=== PATIENT | female | born 1990 | race Caucasian/White ===

== ENCOUNTER 2023-08-24 01:26 | Inpatient (IN) | payer SELFPAY ==
[2023-08-24] VITALS (17 sets, daily range): BP systolic 90–122; BP diastolic 59–76; PULSE 62–88; RESP 14–16; TEMP 36.4–36.6; O2SAT 94–99; BMI 27.6
[2023-08-24 01:48] LABS: Absolute Lymphocyte Count 2.73 X10^3/uL (0.83-4.51); Absolute Neutrophil Count 6.3 X10^3/uL (2.0-7.7); Basophil# 0.04 X10^3/uL; Basophil% 0.4 % (0-1); Eosinophil# 0.13 X10^3/uL; Eosinophils% 1.3 % (0-5); Hematocrit 38.4 % (37-47); Lymphocyte # 2.73 X10^3/ul (0.83-4.51); Lymphocyte % 27.7 % (19-41); Mean Corp Hgb Conc 33.9 g/dL (32-36); Mean Corpuscular Hgb 30.5 pg (27.0-32.0); Mean Corpuscular Volume 90.1 fL (81-99); Mean Platelet Vol. 10.3 fl (6.2-12.0); Monocyte# 0.55 X10^3/uL; Monocyte% 5.6 % (0-10); NRBC Flagged by Analyzer 0 % (0-5); Neutrophil # 6.33 X10^3/uL (2.7-7.7); Neutrophil % 64.4 % (47-70); Platelet Count 194 K/mm3 (150-450); RBC Distribution Width CV 12.3 % (11.6-14.6); RBC Distribution Width SD 39.8 fl (35.1-43.9); Red Blood Count 4.26 M/mm3 (4.2-5.4); White Blood Count 9.8 K/mm3 (4.4-11.0)
[2023-08-24] MEDS: Oxytocin 15 Units/NS 250ml 15 UNITS/250 ML IV.SOLN 83 UNITS IV (02:05)
[2023-08-24] MEDS: Oxytocin 10 UNITS/ML Vial IM (02:12)
--- NOTE | 2023-08-24 02:13 | HP.PCM.OB_ITS ---
HPI - General General Date of Admission: 08/24/23 Date of Service: 08/24/23 HPI Narrative MARIAN METZ, is a 33 F who presents with ctxs. Maternal Data Information Final RADHA: 08[birth year] Gestational age: 39&3 [facility] Medical History no medical history Home Medications amoxicillin 875 mg-potassium clavulanate 125 mg tablet 1 tab PO BID #20 tabs 12/21/21 [Rx Last Taken Unknown] Allergy/AdvReac Type Severity Reaction Status Date / Time sulfamethoxazole Allergy Severe Hives Verified 05/15/22 09:05 [From Bactrim] trimethoprim [From Bactrim] Allergy Severe Hives Verified 05/15/22 09:05 Vital Signs Vital Signs Vital Signs: 08/24/23 01:45 08/24/23 01:45 08/24/23 01:48 Pulse Rate 75 77 Pulse Ox 97 08/24/23 01:48 08/24/23 01:50 08/24/23 01:50 Pulse Rate 77 Pulse Ox 94 99 Weight Weight: 166 lb Body Mass Index (BMI) 27.6 Labs Labs Labs: Blood Type Pending Antibody Screen Pending Hct 38.4 % (37-47) Hgb 13.0 g/dL (12.0-15.0) Syphilis Total Ab Pending Assessment & Plan (1) with 39 completed weeks gestation: COMMENT: 33yo @ 39&3 PLAN: Plan Patient presented to L&D and then proceeded to have a precipitous . Need to obtain [facility] records as patient initially planned to deliver at [place].
--- NOTE | 2023-08-24 02:19 | EX.PCM.OBRPT ---
Maternal Data Information Final RADHA: 08[birth year]/23 Gestational age: 39&3 Vaginal Delivery Maternal Presentation Maternal Presentation: Active Labor Operative Information Date of Procedure: 08/24/23 Pre-Operative Diagnosis: Labor Post-Operative Diagnosis: Labor Surgery / Procedure Performed: Spontaneous Vaginal Delivery Type of Anesthesia: None Estimated Blood Loss: 200ml Findings Description of Procedure: Patient prepped & draped when ant lip/C/+1. AROM thin mec fluid. Patient then C/C/+1. She pushed well to deliver the head. head gently guided to allow delivery of anterior and posterior shoulders. No excess traction placed on head. Body delivered and 3VC clamped & cut in delayed fashion. Placenta delivered with gentle traction and good uterine tone obtained. Presentation: LOP Amniotic Membrane Rupture Type: Artificial Amniotic Fluid Description: Lightly stained meconium Placental Delivery Description: Expressed Placenta Disposition: [facility] Specimen(s) Removed: Placenta Cord Vessel Description: 3 Vessels Cord Entanglement: Around neck x 1, loose Nuchal Cord Compression: With compression Infant A Gender: Female (1 minute): 7 (5 minute): 8 Delayed Cord Clamping: No Post Vaginal Delivery Medications Given After Delivery: IV Pitocin Episiotomy Description: None Laceration: None Complication Complications: None
[2023-08-24 03:17] LABS: Syphilis Antibodies Non-reactive
--- NOTE | 2023-08-24 21:38 | PCM.DC.SUM ---
Providers Date of Admission: 08/24/23 Primary Care Physician: No Primary Care Phys Reason For Visit: VAGINAL DELIVERY Diagnosis Discharge Diagnosis (1) with 39 completed weeks gestation: Status: Acute Code(s): Z3A.39 - 39 weeks gestation of Medications at Discharge Home Medications acetaminophen 500 mg tablet 1,000 mg (2 x 500 mg) PO Q6H PRN PRN Pain 1-10 Or Fever #0 tabs 08/24/23 ibuprofen 600 mg tablet 600 mg PO Q6H PRN PRN Pain Score 1-3 #0 tabs 08/24/23 Hospital Course Summary of Care Provided Minutes Spent on Discharge: 15 Weight / BMI Weight Weight: 166 lb Body Mass Index (BMI) 27.6 ABG / Lab / Microbiology Data 08/24/23 00:35 Laboratory: Laboratory Results - last 24 hr 08/24/23 00:35: WBC 9.8, RBC 4.26, Hgb 13.0, Hct 38.4, MCV 90.1, MCH 30.5, MCHC 33.9, RDW Std Deviation 39.8, RDW Coeff of Josué 12.3, Plt Count 194, MPV 10.3, Immature Gran % (Auto) 0.600, Neut % (Auto) 64.4, Lymph % (Auto) 27.7, Starr % (Auto) 5.6, Eos % (Auto) 1.3, Baso % (Auto) 0.4, Absolute Neuts (auto) 6.3, Absolute Lymphs (auto) 2.73, Nucleated RBC % 0, Syphilis Total Ab Non-reactive, Blood Type O POSITIVE, Antibody Screen NEGATIVE D/C Instructions Discharge Diet: No restrictions Discharge Activity: May Shower May resume sexual activity in: 6 weeks Weight Bearing Status: Weight bearing as tolerated Call your doctor if you observe: Fever of 101 or Higher, Coldness, Increased Pain, Change in Color, Inability to urinate, Inability to have a bowel movement, Using more than 1 pad per hour, Shortness of breath, Dizziness, Fainting spells, Chest pain, Increased palpitations (irregular heartbeat), Calf discomfort and Uncontrolled pain Please Follow Up With: Dean Waldrop MD When: Follow up in 2 and 6 weeks for visits. Meaningful Use Info Meaningful Use Diagnoses (Choose all that apply): None applicable Discharge Plan Admission Admit Date/Time: 08/24/23 01:26 Primary Reason for Your Visit: Vaginal delivery Attending Provider: Dean Waldrop Primary Care Provider: Care Physician,Yeni Primary Discharge Orders/Prescriptions Prescriptions: New acetaminophen 500 mg Tablet 1,000 mg PO Q6H PRN PRN (Reason: Pain 1-10 Or Fever) Qty: 0 0RF ibuprofen 600 mg Tablet 600 mg PO Q6H PRN PRN (Reason: Pain Score 1-3) Qty: 0 0RF Discontinued amoxicillin-pot clavulanate 875-125 mg tablet 1 tab PO BID Qty: 20 0RF Referrals / Follow Up: Care Physician,No Primary [Primary Care Provider] - Disposition Disposition (needs filled in before D/C Order can be placed): Home, Self Care
[2023-08-25 03:28] VITALS: BP 111/86; PULSE 77; RESP 18
[2023-08-25 08:09] VITALS: BP 112/74; PULSE 88; RESP 16; TEMP 36.2; O2SAT 96
--- NOTE | 2023-08-25 10:47 | PCM.PN.OB ---
Subjective Subjective No complaints Objective Data Objective Data Vital Signs: Vital Signs Temp Pulse Resp BP Pulse Ox O2 Del Method 97.2 F L 88 16 112/74 96 Room Air 08/25/23 08:09 08/25/23 08:09 08/25/23 08:09 08/25/23 08:09 08/25/23 08:09 08/25/23 08:09 Oxygen Delivery Method Room Air Weight: 166 lb Body Mass Index (BMI) 27.6 Intake & Output: Intake and Output for Last 24 Hours 08/23/23 08/24/23 08/26/23 23:59 23:59 00:59 Intake Total 250 / 250 Output Total 200 / 200 Balance 50 / 50 Lab / Micro Data 08/24/23 00:35 Physical Exam Const alert, oriented x3 and no apparent distress HEENT normocephalic GI soft to palpation, non-tender and non-distended GI Narrative: fundus firm, mid & below umbilicus Extremity normal to inspection and no calf tenderness Assessment & Plan (1) care following vaginal delivery: PLAN: Plan d/c home
== END 2023-08-25 12:25 | disposition home or self-care (01) | DRG 807 ==
LOC: WPOUT 01:31 → WP 01:31
PROVIDERS: Admitting Provider Obstetrics & Gynecology; Visit Provider Obstetrics & Gynecology
DX: O62.3 Precipitate labor (principal); Z37.0 Single live birth; Z3A.39 39 weeks gestation of pregnancy
CPT/HCPCS: 59025; 59050; 85025; 86780; 86850; 86900; 86901; 99221; G0378